=== PATIENT | male | born 1960 | race Caucasian/White ===

== ENCOUNTER 2017-10-16 13:25 | Emergency (ER) | payer OTHER ==
[2017-10-16] MEDS ORDERED: LIDOCAINE 1%/EPINEPHRINE INJ 20 ML VIAL INJ ONE (14:06)
--- NOTE | 2017-10-16 14:10 | ER Document Report ---
ED Wound - General Chief Complaint: Laceration Stated Complaint: NECK LACERATION Time Seen by Provider: 10/16/17 14:03 Mode of Arrival: Ambulatory Information source: Patient TRAVEL OUTSIDE OF THE [place] IN LAST 30 DAYS: No - HPI Patient complains to provider of: Laceration Occurred: Just prior to arrival Onset/Duration: Sudden Quality of pain: Dull Context: Injury - MICROWAVE OVEN FELL & STRUCK PATIENT'S FACE & NECK Skin Temperature: Warm Skin Color: Normal Capillary refill: < 3 seconds Sensations intact: Yes Distal pulses present: Yes Associated Symptoms: None - Related Data Allergies/Adverse Reactions: clindamycin Allergy (Verified 12/13/15 14:43) rash lisinopril Allergy (Verified 12/13/15 14:43) rash Penicillins Allergy (Verified 12/13/15 14:43) rash Past Medical History - General Information source: Patient - Social History Smoking Status: Unknown if Ever Smoked Frequency of alcohol use: Occasional Drug Abuse: None Lives with: Family Family History: CAD, Hypertension - Past Medical History Cardiac Medical History: Reports: Hx Hypercholesterolemia, Hx Hypertension Endocrine Medical History: Reports: Hx Diabetes Mellitus Type 2 Musculoskeltal Medical History: Reports Hx Arthritis - Rheumatologic Infectious Medical History: Reports: Other - POORLY UNDERSTOOD HEME/ONC DISORDER , IMMUNE DEFICIENCY. Past Surgical History: Reports: Hx Orthopedic Surgery, Hx Vascular Surgery - P[facility] R. SUBCLAVIAN - Immunizations Hx Diphtheria, Pertussis, Tetanus Vaccination: Yes Review of Systems - Review of Systems Constitutional: No symptoms reported EENT: See HPI Cardiovascular: No symptoms reported Respiratory: No symptoms reported Gastrointestinal: No symptoms reported Genitourinary: No symptoms reported Musculoskeletal: No symptoms reported Skin: See HPI Neurological/Psychological: No symptoms reported Physical Exam - Vital signs Vitals: Temp Pulse Resp BP Pulse Ox 97.9 F 85 18 153/85 H 95 10/16/17 13:32 10/16/17 13:32 10/16/17 13:32 10/16/17 13:32 10/16/17 13:32 Interpretation: Hypertensive - General General appearance: Appears well, Alert In distress: None - HEENT Head: Normocephalic, Open wounds - L. NARIS THRU & THRU, 2 cm. SUB-MENTAL, STELLATE LAC. 9 cm, DEPTH DOWN TO SUBGLOSSAL MUSCLES. NO MAJOR VESSELS INVOLVED , NO ARTERIAL BLEEDING Eyes: Normal Conjunctiva: Normal Cornea: Normal Ears: Normal Nasal: Other - LACERATION (SEE ABOVE) Mouth/Lips: Normal Mucous membranes: Normal Pharynx: Normal Neck: Other - LACERATION (SEE ABOVE) - Respiratory Respiratory status: No respiratory distress - Cardiovascular Rhythm: Regular - Abdominal Inspection: Normal Distension: No distension - Extremities General upper extremity: Normal inspection General lower extremity: Normal inspection - Neurological Neuro grossly intact: Yes Cognition: Normal Orientation: AAOx4 - Psychological Associated symptoms: Normal affect, Normal mood - Skin Skin Temperature: Warm Skin Moisture: Dry Skin Color: Normal Skin Turgor: Elastic Course - Vital Signs Vital signs: Temp Pulse Resp BP Pulse Ox 97.9 F 85 16 145/88 H 97 10/16/17 13:32 10/16/17 13:32 10/16/17 19:01 10/16/17 19:01 10/16/17 19:01 - Laboratory Result Diagrams: 10/16/17 14:25 Laboratory results interpreted by me: 10/16/17 14:25 Chloride 108 H BUN 34 H Creatinine 2.08 H Est GFR ( Amer) 40 L Est GFR (Non-Af Amer) 33 L Procedures - Laceration/Wound Repair Face Time completed: 17:50 Wound length (cm): 2 Wound's Depth, Shape: Other - THRU & THRU L. NOSTRIL Laceration pre-procedure: Sterile PPE donned, Shur-Clens applied Anesthetic type: 1% Lidocaine w/epi Volume Anesthetic (mLs): 1 Wound explored: Clean, No foreign body removed Wound Debrided: Minimal Wound Repaired With: Sutures Suture Size/Type: 5:0, Prolene Number of Sutures: 4 Layer Closure?: No Post-procedure NV exam normal: Yes Complications: No Adult Head Front/Back picture: 1 - THRU & THRU LAC., SUTURED Neck Time completed: 17:40 Wound length (cm): 9 Wound's Depth, Shape: Irregular, Stellate, Other - INTO SQ FAT LAYER, SUBGLOTTIC MUSCLES EXPOSED BUT NOT LACERATED Laceration pre-procedure: Sterile PPE donned, Shur-Cledemetria applied Anesthetic type: 1% Lidocaine w/epi Volume Anesthetic (mLs): 7 Wound explored: Clean Irrigated w/ Saline (mLs): 160 Wound Debrided: Minimal Wound Repaired With: Sutures Suture Size/Type: 5:0, Prolene Number of Sutures: 9 Layer Closure?: Yes Deep Layer Suture Size/Type: 4:0, Other - VICRYL Number Deep Layer Sutures: 4 Post-procedure wound care: Sterile dressing applied Notes: 10/16/17 20:07 1/4 INCH NAYELI DRAIN PLACED IN DEPTH OF WOUND. Discharge - Discharge Clinical Impression: Laceration of neck, complicated Qualifiers: Encounter type: initial encounter Qualified Code(s): S11.91XA - Laceration without foreign body of unspecified part of neck, initial encounter Laceration of nose without complication Qualifiers: Encounter type: initial encounter Qualified Code(s): S01.21XA - Laceration without foreign body of nose, initial encounter Condition: Stable Disposition: HOME, SELF-CARE Instructions: Antibiotic Ointment Protection ([facility]), Laceration Care ([facility]), Prophylactic Antibiotic ([facility]), Tetanus Immunization Given ([facility]) Additional Instructions: KEEP BANDAGE IN PLACE, CLEAN, AND DRY. TAKE YOUR ANTIBIOTIC (SULFAMETHOXAZOLE/TRIMETHOPRIM) DIRECTED, BEGINNING TOMORROW (SATURDAY) A.M. YOU MAT TAKE TYLENOL OR IBUPROFEN FOR PAIN RELIEF IF NEEDED. RETURN FOR WOUND, CHECK, BANDAGE LONG, AND REMOVAL OF DRAIN OCTOBER 21. RETURN SOONER IF PROBLEMS, ANY TIME. Prescriptions: Sulfamethoxazole/Trimethoprim [Sulfamethoxazole-Tmp Ds Tablet] 2 each PO BID # 30 tablet
[2017-10-16 15:03] LABS: ANION GAP 12 (5-19); BLOOD UREA NITROGEN 34 mg/dL (7-20); CARBON DIOXIDE 25 mmol/L (22-30); CHLORIDE 108 mmol/L (98-107); GLUCOSE 93 mg/dL (75-110); POTASSIUM 4.3 mmol/L (3.6-5.0); SODIUM 144.6 mmol/L (137-145)
--- NOTE | 2017-10-16 16:20 | RADIOLOGY REPORT (SQ) ---
EXAM DESCRIPTION: CT SOFT TISSUE NECK WITHOUT COMPLETED DATE/TIME: 10/16/2017 4:07 pm REASON FOR STUDY: neck laceration COMPARISON: None. TECHNIQUE: Noncontrast scanning from skull base through lung apices with review of bone, soft tissue and lung windows. Reconstructed coronal and sagittal MPR images reviewed. All images stored on PAC S. All CT scanners at this facility use dose modulation, iterative reconstruction, and/or weight based d osing when appropriate to reduce radiation dose to as low as reasonably achievable (ALARA). [facility]: Dose Right [facility]: CareDose [facility]: Dose Right [facility]: Teradose 4D [facility]: Smart Whole Optics RADIATION DOSE: CT Rad equipment meets quality standard of care and radiation dose reduction techniq ues were employed. CTDIvol: 15.8 mGy. DLP: 572 mGy-cm. mGy. LIMITATIONS: None. FINDINGS: SKULL BASE: Intact. MAJOR SALIVARY GLANDS: No solid or cystic masses. No inflammatory changes. LYMPHADENOPATHY: No adenopathy. MUCOSAL MASSES OR ASYMMETRY: No mucosal masses or asymmetry. LARYNX/CORDS: No abnormal findings. LUNG APICES: Clear. BONES: Intact. THYROID: Normal size. No masses. PARANASAL SINUSES: Clear. OTHER: There is air in the submental soft tissues with obvious lacerations of the skin. IMPRESSION: Soft tissue laceration. No osseous abnormality. TECHNICAL DOCUMENTATION: JOB ID: [id number] Quality ID # [id number]: Final reports with documentation of one or more dose reduction techniques (e.g., Au tomated exposure control, adjustment of the mA and/or kV according to patient size, use of iterative reconstruction technique) 2010 [employer]- All Rights Reserved Reading location - IP/workstation name: [email or web address]
[2017-10-16] MEDS ORDERED: SULFAMETHOX/TRIMETH 800-160 MG/10 ML VIAL IV ONE (17:56)
[2017-10-16] MEDS ORDERED: DIPH/PERTUSS(ACELL)/TETANUS VAC/PF 0.5 ML SYR (>=10YO) IM ONE (18:16)
[2017-10-16 22:40] VITALS: BP 139/86
== END 2017-10-16 22:41 | disposition home or self-care (01) ==
LOC: ER 13:25
DX: S11.91XA Laceration without foreign body of unspecified part of neck, initial encounter (principal); S01.21XA Laceration without foreign body of nose, initial encounter; W20.8XXA Other cause of strike by thrown, projected or falling object, initial encounter; Y93.89 Activity, other specified; E11.9 Type 2 diabetes mellitus without complications; I10 Essential (primary) hypertension; Z88.1 Allergy status to other antibiotic agents; Z88.8 Allergy status to other drugs, medicaments and biological substances; Z88.0 Allergy status to penicillin
CPT/HCPCS: 99284; 90471; 96365; 96366; 36415; 80048; 70490; 90715; 12011; 12044; J3490 ×2

== ENCOUNTER 2017-10-18 07:50 | Emergency (ER) | payer OTHER ==
[2017-10-18 07:57] VITALS: BP 123/71
--- NOTE | 2017-10-18 08:13 | ER Document Report ---
ED General - General Chief Complaint: Wound Recheck Stated Complaint: WOUND FOLLOW UP Time Seen by Provider: 10/18/17 08:05 Mode of Arrival: Ambulatory Information source: Patient, [facility] Records Notes: 56-year-old male presents for a wound check. Patient was seen 2 days prior to arrival after a microwave fell striking him in the neck causing a significant laceration. Laceration was repaired in the emergency department and a drain was placed which the patient states fell out this morning. He denies any pain, purulent drainage, fever, chills. TRAVEL OUTSIDE OF THE [place] IN LAST 30 DAYS: No - Related Data Allergies/Adverse Reactions: clindamycin Allergy (Verified 10/18/17 07:52) rash lisinopril Allergy (Verified 10/18/17 07:52) rash Penicillins Allergy (Verified 10/18/17 07:52) rash Past Medical History - General Information source: Patient, [facility] Records - Social History Smoking Status: Never Smoker Frequency of alcohol use: None Drug Abuse: None Lives with: Family Family History: CAD, Hypertension - Past Medical History Cardiac Medical History: Reports: Hx Hypercholesterolemia, Hx Hypertension Endocrine Medical History: Reports: Hx Diabetes Mellitus Type 2 Renal/ Medical History: Denies: Hx Peritoneal Dialysis Musculoskeltal Medical History: Reports Hx Arthritis - Rheumatologic Past Surgical History: Reports: Hx Orthopedic Surgery, Hx Vascular Surgery - [facility] R. [facility] - Immunizations Hx Diphtheria, Pertussis, Tetanus Vaccination: Yes Review of Systems - Review of Systems Notes: REVIEW OF SYSTEMS: CONSTITUTIONAL : Denies fever, chills, or sweats. Denies recent illness. Denies weight loss, recent hospitalizations. EENT: Denies visual changes, eye pain. Denies nasal or sinus congestion or discharge. Denies sore throat, oral lesions, difficulty swallowing. CARDIOVASCULAR: Denies chest pain. Denies palpitations. Denies lower extremity edema. RESPIRATORY: Denies cough, cold, or chest congestion. Denies shortness of breath, wheezing. GASTROINTESTINAL: Denies abdominal pain or distention. Denies nausea, vomiting , or diarrhea. Denies blood in vomitus, stools, or per rectum. Denies black, tarry stools. Denies constipation. GENITOURINARY: Denies difficulty urinating, painful urination, frequency, blood in urine, or vaginal discharge. MUSCULOSKELETAL: Denies back or neck pain or stiffness. Denies joint pain or swelling. SKIN: Denies rash HEMATOLOGIC : Denies easy bruising or bleeding. LYMPHATIC: Denies swollen glands. NEUROLOGICAL: Denies confusion or altered mental status. Denies passing out or loss of consciousness. Denies dizziness or lightheadedness. Denies headache. Denies weakness or paralysis. Denies problems difficulty with ambulation, slurred speech. Denies sensory loss, numbness, or tingling. Denies seizures. PSYCHIATRIC: Denies anxiety or stress. Denies depression, suicidal ideation, or homicidal ideation. Denies visual or auditory hallucinations. Physical Exam - Vital signs Vitals: Temp Pulse Resp BP Pulse Ox 98.0 F 73 18 123/71 97 10/18/17 07:56 10/18/17 07:56 10/18/17 07:56 10/18/17 07:56 10/18/17 07:56 - Notes Notes: PHYSICAL EXAMINATION: GENERAL: Well-appearing, well-nourished and in no acute distress. HEAD: Atraumatic, normocephalic. EYES: Pupils equal round and reactive to light, extraocular movements intact, sclera anicteric, conjunctiva are normal. ENT: Nares patent, oropharynx clear without exudates. Moist mucous membranes. NECK: Normal range of motion, supple without lymphadenopathy LUNGS: Breath sounds clear to auscultation bilaterally and equal. No wheezes rales or rhonchi. HEART: Regular rate and rhythm without murmurs ABDOMEN: Soft, nontender, nondistended abdomen. No guarding, no rebound. No masses appreciated. Musculoskeletal: Normal range of motion, no pitting or edema. No cyanosis. NEUROLOGICAL: Cranial nerves grossly intact. Normal speech, normal gait. Normal sensory, motor exams PSYCH: Normal mood, normal affect. SKIN: V-shaped laceration intact with 8 sutures. No erythema no purulent drainage. Course - Re-evaluation Re-evalutation: 10/18/17 08:21 56-year-old male presents for a wound check after sustaining a neck laceration 2 days ago. Patient is afebrile, normotensive. He does not appear toxic or dehydrated. Laceration repair is intact. There is no associated erythema, purulent discharge. A new dressing was placed and patient was reminded to return for suture removal in 1 week. Patient provided the opportunity to ask questions, and express concerns. Discharge instructions discussed. Patient is agreeable with discharge home. Return indications explained and discussed with the patient who displays understanding. Patient encouraged to return to the emergency department immediately with any concerns. - Vital Signs Vital signs: Temp Pulse Resp BP Pulse Ox 98.0 F 73 18 123/71 97 10/18/17 07:56 10/18/17 07:56 10/18/17 07:56 10/18/17 07:56 10/18/17 07:56 Discharge - Discharge Clinical Impression: Visit for wound check Condition: Good Disposition: HOME, SELF-CARE Instructions: Facial Laceration ([facility]) Additional Instructions: Follow up with your physician tomorrow for further care or return to the ED IMMEDIATELY if symptoms worsen or new concerns occur. If you cannot afford to follow up with your primary care physician a list of low cost clinics have been provided at the end of your discharge papers as well. Please return for suture removal as originally instructed by the physician who sutured your neck.
== END 2017-10-18 08:20 | disposition home or self-care (01) ==
LOC: ER 07:50
DX: S11.91XD Laceration without foreign body of unspecified part of neck, subsequent encounter (principal); W20.8XXD Other cause of strike by thrown, projected or falling object, subsequent encounter; E11.9 Type 2 diabetes mellitus without complications; I10 Essential (primary) hypertension; Z88.1 Allergy status to other antibiotic agents; Z88.8 Allergy status to other drugs, medicaments and biological substances; Z88.0 Allergy status to penicillin
CPT/HCPCS: 99282

== ENCOUNTER 2017-10-25 08:42 | Emergency (ER) | payer OTHER ==
[2017-10-25 08:47] VITALS: BP 118/68
--- NOTE | 2017-10-25 09:24 | ER Document Report ---
HPI - HPI Pain Level: 0 Notes: Patient is a 56-year-old male who presents to the ED for suture removal status post placement about 10 days ago. Patient states that his wounds have been healing well without any discharge or redness to note. He has not had any associated pain. Patient had 13 sutures placed superficially on his nose and underneath his chin. No other concerns or complaints. Denies any headache, fever, neck pain, URI, sore throat, chest pain, palpitations, syncope, cough, shortness of breath, wheeze, dyspnea, abdominal pain, nausea/vomiting/diarrhea, urinary retention, dysuria, hematuria, or rash. - ROS Systems Reviewed and Negative: Yes All other systems reviewed and negative Past Medical History - Social History Smoking Status: Never Smoker Chew tobacco use (# tins/day): No Frequency of alcohol use: None Drug Abuse: None Family History: CAD, Hypertension Patient has suicidal ideation: No Patient has homicidal ideation: No - Past Medical History Cardiac Medical History: Reports: Hx Hypercholesterolemia, Hx Hypertension Endocrine Medical History: Reports: Hx Diabetes Mellitus Type 2 Renal/ Medical History: Denies: Hx Peritoneal Dialysis Musculoskeletal Medical History: Reports Hx Arthritis - Rheumatologic Past Surgical History: Reports: Hx Orthopedic Surgery, Hx Vascular Surgery - P[facility] R. SUBCLAVIAN - Immunizations Hx Diphtheria, Pertussis, Tetanus Vaccination: Yes Vertical Provider Document - CONSTITUTIONAL Agree With Documented VS: Yes Notes: PHYSICAL EXAMINATION: GENERAL: Well-appearing, well-nourished and in no acute distress. LUNGS: Breath sounds clear to auscultation bilaterally and equal. No wheezes rales or rhonchi. HEART: Regular rate and rhythm without murmurs, rubs, gallops. NEUROLOGICAL: Normal speech, normal gait. PSYCH: Normal mood, normal affect. SKIN: Sutures in place to nose/under chin. No erythema, induration, streaks, discharge, or wound dehiscence. Non-tender. - INFECTION CONTROL TRAVEL OUTSIDE OF THE [place] IN LAST 30 DAYS: No Course - Re-evaluation Re-evalutation: 10/25/17 09:22 Patient is an afebrile, well-hydrated, 56-year-old male who presents to the ED for suture removal. Vitals are acceptable. PE is otherwise unremarkable. There is no sign of infection or wound dehiscence. Wound appears well-healed. Sutures were removed successfully without any complications. Patient to recheck with PCM in 3-5 days. Return to the ED with any worsening/concerning symptoms otherwise as reviewed in discharge. Patient is in agreement. - Vital Signs Vital signs: Temp Pulse Resp BP Pulse Ox 97.5 F 67 17 118/68 98 10/25/17 08:46 10/25/17 08:46 10/25/17 08:46 10/25/17 08:46 10/25/17 08:46 Discharge - Discharge Clinical Impression: Encounter for removal of sutures Condition: Stable Disposition: HOME, SELF-CARE Instructions: Suture Removal Additional Instructions: Keep the skin clean Wash with soap and water Tylenol/ibuprofen if needed Triple antibiotic ointment daily for any break in the skin Scar cream Take medication as directed Monitor for any worsening symptoms Recheck with your PCM in 3-5 days Return to the ED with any worsening symptoms and/or development of fever, headache, chest pain, palpitations, syncope, shortness of breath, trouble breathing, abdominal pain, n/v/d, abscess, purulent discharge, red streaks, worsening swelling, or other worsening symptoms that are concerning to you. Referrals: [facility] [Provider Group] - Follow up as needed [facility] [Provider Group] - Follow up as needed
== END 2017-10-25 09:33 | disposition home or self-care (01) ==
LOC: ER 08:42
DX: Z48.02 Encounter for removal of sutures (principal); E78.00 Pure hypercholesterolemia, unspecified; I10 Essential (primary) hypertension; E11.9 Type 2 diabetes mellitus without complications; M19.90 Unspecified osteoarthritis, unspecified site

== ENCOUNTER 2019-07-08 12:57 | Emergency (ER) | payer OTHER ==
[2019-07-08] MEDS ORDERED: ASPIRIN 81 MG TABLET, CHEWABLE PO ONE (13:20)
--- NOTE | 2019-07-08 13:22 | ER Document Report ---
ED Medical Screen (RME) - General Stated Complaint: CHEST PAIN Time Seen by Provider: 07/08/19 13:06 Mode of Arrival: Ambulatory Information source: Patient Notes: 58-year-old male with history of diverticulitis bronchitis pneumonia presents to the emergency department with complaints of chest tightness to the center of his chest reports left arm pain reports the tightness goes all the way to his back. Denies shortness of breath or nausea. Reports he just is finishing antibiotics for diverticulitis. He reports 1 month ago he was on antibiotics for pneumonia. Otherwise denies fever vomiting nausea diarrhea. Denies history of cardiac disease. I have greeted and performed a rapid initial assessment of this patient. A comprehensive ED assessment and evaluation of the patient, analysis of test results and completion of the medical decision making process will be conducted by additional ED providers. TRAVEL OUTSIDE OF THE [place] IN LAST 30 DAYS: No - Related Data Allergies/Adverse Reactions: clindamycin Allergy (Verified 07/08/19 13:18) rash lisinopril Allergy (Verified 07/08/19 13:18) rash Penicillins Allergy (Verified 07/08/19 13:18) rash Past Medical History - Past Medical History Cardiac Medical History: Reports: Hx Hypercholesterolemia, Hx Hypertension Endocrine Medical History: Reports: Hx Diabetes Mellitus Type 2 Renal/ Medical History: Denies: Hx Peritoneal Dialysis Musculoskeltal Medical History: Reports Hx Arthritis - Rheumatologic Past Surgical History: Reports: Hx Orthopedic Surgery, Hx Vascular Surgery - [facility] R. [facility]CLAV[facility] - Immunizations Hx Diphtheria, Pertussis, Tetanus Vaccination: Yes Physical Exam - Vital signs Vitals: Temp Pulse Resp BP Pulse Ox 98.1 F 77 18 130/70 H 99 07/08/19 13:09 07/08/19 13:09 07/08/19 13:07/08/19 13:09 07/08/19 13:09 Course - Vital Signs Vital signs: Temp Pulse Resp BP Pulse Ox 98.1 F 77 18 130/70 H 99 07/08/19 13:09 07/08/19 13:09 07/08/19 13:09 07/08/19 13:09 07/08/19 13:09
--- NOTE | 2019-07-08 14:02 | ER Document Report ---
ED General - General Chief Complaint: Chest Pain Stated Complaint: CHEST PAIN Time Seen by Provider: 07/08/19 13:06 [facility] Care Provider[facility] [[facility]] - Follow up as needed Mode of Arrival: Ambulatory Information source: Patient Notes: 58-year-old male presented to ED for complaint of chest pain to the left side of his chest going up to the left arm up to his neck. He does have a history of diverticulitis bronchitis and pneumonia. He states he has not had any shortness of breath runny nose cough congestion nausea vomiting. He states he just finished his antibiotics for his diverticulitis he still has a little bit of pain on the left lower quadrant. He states a month ago he had antibiotics for pneumonia. He has not had any fever nausea vomiting or diarrhea. He does not have any history of any cardiac disease and does not have any history of any family members dying from heart disease. He does have high blood pressure and cholesterol also has diabetes type 2 arthritis TRAVEL OUTSIDE OF THE [place] IN LAST 30 DAYS: No - HPI Onset: Yesterday Onset/Duration: Gradual Quality of pain: Other - Tightness Severity: Moderate Pain Level: 2 Associated symptoms: Chest pain. denies: Nonproductive cough, Productive cough, Diarrhea, Fever, Headache, Nausea, Vomiting, Sinus pain/drainage, Shortness of breath, Slow to respond, Sore throat, Sweating, Weakness Exacerbated by: Denies Relieved by: Denies Similar symptoms previously: Yes Recently seen / treated by doctor: No - Related Data Allergies/Adverse Reactions: clindamycin Allergy (Verified 07/08/19 13:18) rash lisinopril Allergy (Verified 07/08/19 13:18) rash Penicillins Allergy (Verified 07/08/19 13:18) rash Past Medical History - General Information source: Patient - Social History Smoking Status: Former Smoker Cigarette use (# per day): No Frequency of alcohol use: None Drug Abuse: None Lives with: Family Family History: CAD, Hypertension Patient has suicidal ideation: No Patient has homicidal ideation: No - Past Medical History Cardiac Medical History: Reports: Hx Hypercholesterolemia, Hx Hypertension Pulmonary Medical History: Reports: None EENT Medical History: Reports: None Neurological Medical History: Reports: None Endocrine Medical History: Reports: Hx Diabetes Mellitus Type 2 Renal/ Medical History: Reports: None Malignancy Medical History: Reports None GI Medical History: Reports: None Musculoskeletal Medical History: Reports Hx Arthritis - Rheumatologic Skin Medical History: Reports None Psychiatric Medical History: Reports: None Traumatic Medical History: Reports: None Infectious Medical History: Reports: None Past Surgical History: Reports: Hx Orthopedic Surgery, Hx Vascular Surgery - [facility] - Immunizations Hx Diphtheria, Pertussis, Tetanus Vaccination: Yes Review of Systems - Review of Systems Constitutional: No symptoms reported EENT: No symptoms reported Cardiovascular: Chest pain. denies: Palpitations, Heart racing, Dyspnea, Syncope, Dizziness, Lightheaded, Edema, Paroxysmal Nocturnal Dysp Respiratory: No symptoms reported. denies: Cough, Short of breath Gastrointestinal: No symptoms reported Genitourinary: No symptoms reported Male Genitourinary: No symptoms reported Musculoskeletal: No symptoms reported Skin: No symptoms reported Hematologic/Lymphatic: No symptoms reported Neurological/Psychological: No symptoms reported Physical Exam - Vital signs Vitals: Temp Pulse Resp BP Pulse Ox 98.1 F 77 18 130/70 H 99 07/08/19 13:09 07/08/19 13:09 07/08/19 13:09 07/08/19 13:09 07/08/19 13:09 Interpretation: Normal - General General appearance: Appears well, Alert - HEENT Head: Normocephalic, Atraumatic Eyes: Normal Pupils: PERRL - Respiratory Respiratory status: No respiratory distress Chest status: Nontender Breath sounds: Normal Chest palpation: Normal - Cardiovascular Rhythm: Regular Heart sounds: Normal auscultation Murmur: No - Abdominal Inspection: Normal Distension: No distension Bowel sounds: Normal Tenderness: Nontender Organomegaly: No organomegaly - Back Back: Normal, Nontender - Extremities General upper extremity: Normal inspection, Nontender, Normal color, Normal ROM, Normal temperature General lower extremity: Normal inspection, Nontender, Normal color, Normal ROM, Normal temperature, Normal weight bearing. No: Buffy's sign - Neurological Neuro grossly intact: Yes Cognition: Normal Orientation: AAOx4 Elisabeth Coma Scale Eye Opening: Spontaneous Elisabeth Coma Scale Verbal: Oriented Elisabeth Coma Scale Motor: Obeys Commands Elisabeth Coma Scale Total: 15 Speech: Normal Motor strength normal: LUE, RUE, LLE, RLE Sensory: Normal - Psychological Associated symptoms: Normal affect, Normal mood - Skin Skin Temperature: Warm Skin Moisture: Dry Skin Color: Normal Course - Re-evaluation Re-evalutation: 07/08/19 15:[address] Elizabeth as he is the attending at this time concerning this man's chest pain and his heart score of 5. He stated the patient would need to be admitted for observation. I did call the hospitalist Dr. Thompson who stated he would come down and see the patient. I spoke with Dr. Elizabeth he stated if the doctor did not want to admit the patient he would need to discharge him because he feels that the patient should be observed. Does have a heart score of 5 07/08/19 17:04 Dr. Thompson stated he would not accept the patient for admission as he did not need to be admitted observation for his chest pain. I then spoke with Dr. Freitas the utility teller. He stated he would have his office schedule a stress test as soon as possible. I then spoke with Dr. Elizabeth. I informed him the first 2 troponins were negative and the Dr. Thompson has scheduled a third troponin for 5:00. He states that the hospitalist is supposed to discharge the patient but if we are able to get a stress test done outpatient that we can discharge the patient with an understanding that he is to return to the hospital immediately for any chest pain. Patient did verbalize understanding of this. Patient also has a history of HLA which he is concerned about due to the immune compromised situation with the viruses in the hospital. 07/08/19 18:08 Third troponin is negative. Will discharge patient home have arranged with Dr. Freitas to do a test this soon as possible. Patient states he will go to the [facility] to ensure that Dr. Freitas can do the stress test as soon as possible. Patient states he is not having any pain at this time. Will discharge home. - Vital Signs Vital signs: Temp Pulse Resp BP Pulse Ox 98.1 F 77 18 130/70 H 99 07/08/19 13:09 07/08/19 13:09 07/08/19 13:09 07/08/19 13:09 07/08/19 13:09 - Laboratory Result Diagrams: 07/08/19 13:56 07/08/19 13:56 Laboratory results interpreted by me: 07/08/19 07/08/19 13:56 13:56 RBC 4.27 L Hgb 13.0 L Hct 37.8 L Plt Count 138 L Sodium 133.9 L Creatinine 1.29 H Est GFR (MDRD) Non-Af 57 L Glucose 308 H - Diagnostic Test Radiology reviewed: Image reviewed, Reports reviewed - EKG Interpretation by Me EKG shows normal: Sinus rhythm Rate: Normal Rhythm: NSR - Consults Onwe Time consulted: 15:50 Reason for consultation: 07/08/19 15:55 Left-sided chest pain with radiation to the left arm and shoulder with a heart score of 5 age history of blood pressure and cholesterol. Family history of coronary artery disease. Patient history of diabetes. Consulted provider: will come to ER Discharge - Discharge Clinical Impression: Chest pain Qualifiers: Chest pain type: other chest pain Qualified Code(s): R07.89 - Other chest pain; R07.8 - Other chest pain Condition: Stable Disposition: HOME, SELF-CARE Additional Instructions: CHEST PAIN OF UNCLEAR CAUSE: The exact cause of your chest pain isn't clear. Fortunately, there is no evidence of a dangerous medical condition. Further testing may be required to find the source of the pain. Most often, we find that this pain is coming from the chest wall -- the muscles or rib joints in the chest. But chest pain can come from the lung and lung lining, the esophagus, the heart valves or heart lining, and even the stomach or gallbladder. Rest. Eat lightly until the pain is gone. We may prescribe medicine for pain and inflammation. You should call the physician immediately if the pain radiates to the shoulder, jaw or arms; if you start to run a fever or develop a cough; or if you develop shortness of breath, or other new or alarming symptoms. NORMAL EXAM AND WORKUP: At this time, your examination and workup show no significant abnormality. No significant abnormal physical findings were noted. All laboratory, EKG, and imaging (x-ray, CT scans, ultrasound) studies that were ordered show no significant abnormality. Although your examination and all studies that were ordered showed no significant abnormal finding, there are no examinations and no studies that are 100% accurate. There is always the possibility that some abnormality could exist and not be detected with physical examination or within the limits and capabilities of laboratory and other studies. You should return or follow up as you were instructed on your visit today for further evaluation if your symptoms do not resolve. ASPIRIN: Aspirin has been shown to have a beneficial effect on blood circulation by reducing the clotting effect of platelets in the blood. These beneficial effects can be achieved by taking just a single baby (81 mg) aspirin a day. It is recommended that any person over the age of forty take a single baby aspirin every day for heart and brain circulation, unless you are allergic to aspirin or have some significant bleeding disorder. It is strongly recommended that people who have proven cardiac or blood circulation disturbances should take a baby aspirin every day. You have had 3- troponins today, you also had a negative chest x-ray and check EKG. I have spoken with Dr. Freitas who is a utility teller. He will be calling you to schedule a stress test as soon as his office can arrange it. Please be sure that you get the stress test as instructed. FOLLOW-UP CARE: If you have been referred to a physician for follow-up care, call the physicians office for an appointment as you were instructed or within the next two days. If you experience worsening or a significant change in your symptoms, notify the physician immediately or return to the Emergency Department at any time for re-evaluation. Forms: Elevated Blood Pressure Referrals: ERMELINDA FREITAS MD [ACTIVE STAFF] - Follow up in 3-5 days [facility] [[facility]] - Follow up tomorrow
[2019-07-08 14:10] LABS: ABSOLUTE EOSINOPHILS # (AUTO) 0.1 10^3/uL (0.0-0.6); ABSOLUTE LYMPHOCYTES (AUTO) 0.9 10^3/uL (0.5-4.7); ABSOLUTE MONOCYTES (AUTO) 0.4 10^3/uL (0.1-1.4); ABSOLUTE NEUT (AUTO) 2.8 10^3/uL (1.7-8.2); BASOPHILS % (AUTO) 0.5 % (0-2); EOSINOPHILS % (AUTO) 2.4 % (0-6); HEMATOCRIT 37.8 % (37.9-51.0); LYMPHOCYTES % (AUTO) 21.1 % (13-45); MEAN CORPUSCULAR HEMOGLOBIN 30.4 pg (27.0-33.4); MEAN CORPUSCULAR HGB CONC 34.3 g/dL (32.0-36.0); MEAN CORPUSCULAR VOLUME 89 fl (80-97); MONOCYTES % (AUTO) 8.6 % (3-13); PLATELET COUNT 138 10^3/uL (150-450); RED BLOOD COUNT 4.27 10^6/uL (4.35-5.55); RED CELL DISTRIBUTION WIDTH 13.8 % (11.5-14.0); SEGMENTED NEUTROPHILS % (AUTO) 67.4 % (42-78); TOTAL CELLS COUNTED % (AUTO) 100 %; WHITE BLOOD COUNT 4.2 10^3/uL (4.0-10.5)
[2019-07-08 14:26] LABS: ALBUMIN 3.7 g/dL (3.5-5.0); ALKALINE PHOSPHATASE 50 U/L (38-126); ANION GAP 8 (5-19); ASPARTATE AMINO TRANSFERASE 54 U/L (17-59); BILIRUBIN,DIRECT 0.3 mg/dL (0.0-0.4); BILIRUBIN,TOTAL 0.4 mg/dL (0.2-1.3); BLOOD UREA NITROGEN 20 mg/dL (7-20); CALCIUM 8.6 mg/dL (8.4-10.2); CARBON DIOXIDE 25 mmol/L (22-30); CHLORIDE 101 mmol/L (98-107); GLUCOSE 308 mg/dL (75-110); POTASSIUM 4.5 mmol/L (3.6-5.0); TOTAL PROTEIN 7.1 g/dL (6.3-8.2)
--- NOTE | 2019-07-08 15:01 | RADIOLOGY REPORT (SQ) ---
EXAM DESCRIPTION: CHEST SINGLE VIEW COMPLETED DATE/TIME: 07/08/2019 1:44 pm REASON FOR STUDY: chest tightness COMPARISON: 12/13/2015 NUMBER OF VIEWS: One view. TECHNIQUE: Single frontal radiographic view of the chest acquired. LIMITATIONS: None. FINDINGS: LUNGS AND PLEURA: No opacities, masses or pneumothorax. No pleural effusion. MEDIASTINUM AND HILAR STRUCTURES: No masses. Contour normal. HEART AND VASCULAR STRUCTURES: Heart normal in size. Normal vasculature. BONES: No acute findings. HARDWARE: None in the chest. OTHER: No other significant finding. IMPRESSION: NO SIGNIFICANT RADIOGRAPHIC FINDING IN THE CHEST. TECHNICAL DOCUMENTATION: JOB ID: [id number] 2010 [employer]- All Rights Reserved Reading location - IP/workstation name: [email or web address]
[2019-07-08] MEDS ORDERED: NORMAL SALINE 1000 ML 1,000 ML IV ONE (15:25)
--- NOTE | 2019-07-08 16:52 | PDOC CONSULTATION ---
Consultation Consult Date: 07/08/19 Attending physician:: RADHA VAZQUEZ Provider Consulted: TWAN LYNN Consult reason:: chest pain History of Present Illness Admission Date/PCP: [facility] Patient complains of: Chest pain History of Present Illness: SHANNON KEBEDE is a 58 year old male with a history of type 2 diabetes mellitus, hypertension, recent diverticulitis (just completed abx therapy), HLH, who presents to the hospital with complaint of chest pain. Chest pain is left parasternal region radiates to left arm. Began yesterday night while patient was at rest. Describes the chest pain as a dull pain which he states gets alleviated by getting up to walk around. The pain is intermittent and has occurred about 3-4 times since onset each time lasting only about 1 to 2 minutes. Not worsened by exertion or deep breaths. Has had prior episodes about 1 month ago. Denies any history of coronary artery disease. Denies any shortness of breath, cough. At this time patient states that he is chest pain- free and would like to know if he can go home get any further work-up done outpatient. Patient is concerned about being in the hospital being exposed given his immunosuppression state from his HLH in light of the COVID outbreak. Past Medical History Cardiac Medical History: Reports: Hypertension Denies: Atrial Fibrillation, Congestive Heart Failure, Coronary Artery Diseas e, Peripheral Vascular Disease Pulmonary Medical History: Reports: None EENT Medical History: Reports: None Neurological Medical History: Reports: None Denies: Ischemic CVA Endocrine Medical History: Reports: Diabetes Mellitus Type 2 Renal/ Medical History: Reports: None Malignancy Medical History: Reports: None GI Medical History: Reports: None Musculoskeltal Medical History: Reports: Arthritis - Rheumatologic Skin Medical History: Reports: None Psychiatric Medical History: Reports: None Traumatic Medical History: Reports: None Infectious Medical History: Reports: None Past Surgical History Past Surgical History: Reports: Orthopedic Surgery, Vascular Surgery - [facility] Social History Information Source: Patient Lives with: Family Smoking Status: Former Smoker Frequency of Alcohol Use: None Hx Recreational Drug Use: No Drugs: None Hx Prescription Drug Abuse: No Family History Family History: CAD, Hypertension Parental Family History Reviewed: Yes Children Family History Reviewed: NA Sibling(s) Family History Reviewed.: Yes Medication/Allergy Home Medications: Aspirin [Aspirin 81 mg Chewable Tablet] 81 mg PO DAILY 04/20/14 Insulin Aspart [Novolog Flexpen] 0 unit SUBCUT .SLD SCALE 04/20/14 Insulin Glargine,Hum.rec.anlog [Lantus (Pyxis) Insulin 100 Unit/1 ml 10 ml] 74 unit SUBCUT QAM 04/20/14 Losartan Potassium 50 mg PO DAILY 04/20/14 Naproxen 500 mg PO BID 04/20/14 Omeprazole 20 mg PO BID 04/20/14 Pravastatin Sodium [Pravachol] 40 mg PO QHS 04/20/14 Amlodipine Besylate 5 mg PO DAILY 11/24/15 Tamsulosin HCl 0.4 mg PO DAILY 11/24/15 Metoprolol Tartrate [Lopressor 50 mg Tablet] 50 mg PO Q12 #60 tablet 11/29/15 Sulfamethoxazole/Trimethoprim [Sulfamethoxazole-Tmp Ds Tablet] 2 each PO BID #30 tablet 10/16/17 Allergies/Adverse Reactions: clindamycin Allergy (Verified 07/08/19 13:18) rash lisinopril Allergy (Verified 07/08/19 13:18) rash Penicillins Allergy (Verified 07/08/19 13:18) rash Review of Systems Constitutional: ABSENT: chills, fever(s) Eyes: ABSENT: visual disturbances Nose, Mouth, and Throat: ABSENT: headache(s) Cardiovascular: PRESENT: chest pain. ABSENT: dyspnea on exertion, edema Respiratory: ABSENT: cough, dyspnea Gastrointestinal: PRESENT: abdominal pain. ABSENT: diarrhea, nausea, vomiting Musculoskeletal: ABSENT: back pain Integumentary: ABSENT: diaphoresis Neurological: ABSENT: confusion, dizziness Psychiatric: ABSENT: anxiety Endocrine: ABSENT: polyuria Physical Exam Vital Signs: Temp Pulse Resp BP Pulse Ox 98.1 F 77 18 130/70 H 99 07/08/19 13:09 07/08/19 13:09 07/08/19 13:09 07/08/19 13:09 07/08/19 13:09 Intake & Output 07/07/19 07/08/19 07/09/19 06:59 06:59 06:59 Intake Total 1000 Balance 1000 Weight 88.4 kg General appearance: PRESENT: no acute distress, cooperative Head exam: PRESENT: normocephalic Eye exam: PRESENT: EOMI Neck exam: ABSENT: JVD Respiratory exam: PRESENT: clear to auscultation jama, symmetrical, unlabored. ABSENT: chest wall tenderness, tachypnea, wheezes Cardiovascular exam: PRESENT: RRR, +S1, +S2. ABSENT: systolic murmur, tachycardia GI/Abdominal exam: PRESENT: soft, tenderness - Very minimal in the left lower quadrant at site of his recent diverticulitis which she has completed treatment for. ABSENT: distended, firm, guarding, rebound, rigid Extremities exam: ABSENT: calf tenderness, pedal edema Musculoskeletal exam: PRESENT: ambulatory Neurological exam: PRESENT: alert, awake, oriented to person, oriented to place, oriented to time, oriented to situation Psychiatric exam: ABSENT: agitated, anxious Focused psych exam: ABSENT: pressured speech Skin exam: ABSENT: jaundice Results Laboratory Results: 07/08/19 13:56 07/08/19 13:56 07/08/19 07/08/19 13:56 13:56 WBC 4.2 RBC 4.27 L Hgb 13.0 L Hct 37.8 L MCV 89 MCH 30.4 MCHC 34.3 RDW 13.8 Plt Count 138 L Seg Neutrophils % 67.4 Sodium 133.9 L Potassium 4.5 Chloride 101 Carbon Dioxide 25 Anion Gap 8 BUN 20 Creatinine 1.29 H Est GFR ( Amer) > 60 Glucose 308 H Calcium 8.6 Total Bilirubin 0.4 AST 54 Alkaline Phosphatase 50 Total Protein 7.1 Albumin 3.7 07/08/19 07/08/19 13:56 15:36 Troponin I < 0.012 < 0.012 Impressions: Chest X-Ray 07/08/19 13:20 IMPRESSION: NO SIGNIFICANT RADIOGRAPHIC FINDING IN THE CHEST. Assessment and Plan - Diagnosis (1) Atypical chest pain Is this a current diagnosis for this admission?: Yes (2) Hyperglycemia due to type 2 diabetes mellitus Is this a current diagnosis for this admission?: Yes - Plan Summary Summary: Patient's chest pain is highly atypical lasting only 1 to 2 minutes and actually improves with exertion. Does radiate to left arm. However at this moment patient chest pain has resolved. EKG shows no evidence of ST or T wave changes or poor R wave progression to suggest any acute coronary syndrome. Chest x-ray is within normal limits Troponin has been negative. Patient also requesting to be discharged home if possible to follow-up outpatient because he is concerned about his immunocompromised state from HLH. I would recommend checking 1 more troponin level at 5 PM and if negative discharge patient home to follow-up with his primary care provider at the [place] which he says he will see tomorrow for referral to a wheat cleaner to see if any further ischemic cardiac work-up is warranted. At this time patient does not need to be admitted to the hospital. - Time Time Spent with patient: 35 or more minutes
[2019-07-08 18:10] VITALS: BP 169/97
--- NOTE | 2019-07-09 08:17 | EKG REPORT ---
SEVERITY:- DEFECTIVE ECG - SINUS RHYTHM BORDERLINE LEFT AXIS DEVIATION EARLY PRECORDIAL TRANSITION, LEAD PLACEMENT ERROR? : Confirmed by: Avila De Jesus MD 09-Jul-2019 08:16:19
== END 2019-07-08 18:19 | disposition home or self-care (01) ==
LOC: ER 12:57
DX: R07.89 Other chest pain (principal); I10 Essential (primary) hypertension; E11.9 Type 2 diabetes mellitus without complications; D76.1 Hemophagocytic lymphohistiocytosis; E78.00 Pure hypercholesterolemia, unspecified; M06.9 Rheumatoid arthritis, unspecified; Z79.1 Long term (current) use of non-steroidal anti-inflammatories (NSAID); Z79.82 Long term (current) use of aspirin; Z79.4 Long term (current) use of insulin; Z79.899 Other long term (current) drug therapy; Z87.01 Personal history of pneumonia (recurrent); Z87.19 Personal history of other diseases of the digestive system; Z87.891 Personal history of nicotine dependence; Z88.1 Allergy status to other antibiotic agents; Z88.8 Allergy status to other drugs, medicaments and biological substances; Z88.0 Allergy status to penicillin; Z82.49 Family history of ischemic heart disease and other diseases of the circulatory system
CPT/HCPCS: 93005; 99285; 96360; 36415; 85025; 80053; 84484; 71045; 93010; J7030